=== PATIENT | female | born 1975 | race African-American/Black ===

== ENCOUNTER 2018-09-13 12:54 | Inpatient (IN) | payer OTHER ==
[2018-09-13 14:01] VITALS: BMI 31.8
--- NOTE | 2018-09-13 16:12 | HP ---
CIWA Score Nausea/Vomitin Muscle Tremors: 2 Anxiety: 2 Agitation: 2 Paroxysmal Sweats: 1-Minimal Palms Moist Orientation: 0-Oriented Tacttile Disturbances: 1-Very Mild Itch/Numbness Auditory Disturbances: 1-Very Mild Visual Disturbances: 0-None Headache: 2-Mild CIWA-Ar Total Score: 13 - Admission Criteria OASAS Guidelines: Admission for Medically Managed Detox: Requires at least one of the followin. CIWA greater than 12 2. Seizures within the past 24 hours 3. Delirium tremens within the past 24 hours 4. Hallucinations within the past 24 hours 5. Acute intervention needed for co occurring medical disorder 6. Acute intervention needed for co occurring psychiatric disorder 7. Severe withdrawal that cannot be handled at a lower level of care (continued vomiting, continued diarrhea, abnormal vital signs) requiring intravenous medication and/or fluids 8. Admission ROS [facility]HS - HPI Chief Complaint: i need hel to stop drinking alcohol and cocaine dependence Allergies/Adverse Reactions: Allergies Allergy/AdvReac Type Severity Reaction Status Date / Time No Known Allergies Allergy Verified 09/13/18 13:53 History of Present Illness: this 42 years old female with alcohol and cocaine dependence,seeking detox, withdrawal symptom, mmtp 170 mgs/day,last medicated today syncope history of endocarditis hepatitis c no treatment nicotine dependence 1 pack,would like to have nicotine patch multiple admissions in detox,last 2016 unknown facility longest period of sobriety 1 year plan for rehab after detox Exam Limitations: No Limitations - Ebola screening Have you traveled outside of the country in the last 21 days: No ([place]) Have you had contact with anyone from an Ebola affected area: No Do you have a fever: No - Review of Systems Constitutional: Loss of Appetite, Malaise, Night Sweats, Changes in sleep, Weakness EENT: reports: Nose Congestion Respiratory: reports: No Symptoms reported Cardiac: reports: No Symptoms Reported GI: reports: Nausea, Poor Appetite, Abdominal cramping : reports: No Symptoms Reported Musculoskeletal: reports: Back Pain, Muscle Pain Integumentary: reports: Dryness Neuro: reports: Headache, Tremors Endocrine: reports: No Symptoms Reported Hematology: reports: No Symptoms Reported Psychiatric: reports: No Sypmtoms Reported, Judgement Intact, Mood/Affect Appropiate, Orientated x3 Other Systems: Reviewed and Negative Patient History - Patient Medical History Hx Anemia: No Hx Asthma: No Hx Chronic Obstructive Pulmonary Disease (COPD): No Hx Cancer: No Hx Cardiac Disorders: No Hx Congestive Heart Failure: No Hx Hypertension: No Hx Hypercholesterolemia: No Hx Pacemaker: No HX Cerebrovascular Accident: No Hx Seizures: No Hx Dementia: No Hx Diabetes: No Hx Gastrointestinal Disorders: No Hx Liver Disease: No Hx Genitourinary Disorders: No Hx Sexually Transmitted Disorders: No Hx Renal Disease (ESRD): No Hx Thyroid Disease: No Hx Human Immunodeficiency Virus (HIV): No (last 06/26 negative) Hx Hepatitis C: Yes (not treatment) Hx Depression: Yes Hx Suicide Attempt: No Hx Bipolar Disorder: No Hx Schizophrenia: No Other Medical History: no suicidal,no homicidal - Patient Surgical History Past Surgical History: No - PPD History Previous Implant?: Yes Documented Results: Negative w/o proof Implanted On Prior [facility] Admission?: No PPD to be Administered?: No - Reproductive History Patient is a Female of Child Bearing Age (11 -55 yrs old): Yes Last Menstrual Period: 08/27/18 Patient : No - Smoking Cessation Smoking history: Current every day smoker Have you smoked in the past 12 months: Yes Aproximately how many cigarettes per day: 20 Cigars Per Day: 0 Hx Chewing Tobacco Use: No Initiated information on smoking cessation: Yes 'Breaking Loose' booklet given: 09/13/18 - Substance & Tx. History Hx Alcohol Use: Yes Hx Substance Use: Yes Substance Use Type: Alcohol, Cocaine Hx Substance Use Treatment: Yes (2017 unknown facility) - Substances abused Alcohol Substance route: Oral Frequency: Daily Amount used: 1 PINT OF VODKA Age of first use: 14 Date of last use: 09/13/18 Cocaine Substance route: Smoking Frequency: Daily Amount used: $20-$30 Age of first use: 27 Date of last use: 09/11/18 Family Disease History - Family Disease History Family Disease History: Other: Father (alcohol,), Mother () Admission Physical Exam BHS - Vital Signs Vital Signs: Vital Signs - 24 hr 09/13/18 09/13/18 13:54 15:30 Temperature 97.8 F 97.8 F Pulse Rate 78 78 Respiratory 20 20 Rate Blood Pressure 112/66 112/66 - Physical General Appearance: Yes: Moderate Distress, Tremorous, Irritable, Anxious HEENTM: Yes: Normal ENT Inspection, MARIA L, Pharynx Normal Respiratory: Yes: Within Normal Limits, Lungs Clear, Normal Breath Sounds Neck: Yes: Within Normal Limits, Supple, Trachea in good position Breast: Yes: Breast Exam Deferred Cardiology: Yes: Within Normal Limits, Regular Rhythm, Regular Rate, S1, S2 Abdominal: Yes: Within Normal Limits, Normal Bowel Sounds, Non Tender, Flat, Soft Genitourinary: Yes: Within Normal Limits Back: Yes: Muscle Spasm Musculoskeletal: Yes: full range of Motion, Back pain, Muscle Pain Extremities: Yes: Tremors Neurological: Yes: cigar packer and sorter II-XII NML intact, Alert, Motor Strength 5/5 Integumentary: Yes: Dry Lymphatic: Yes: Within Normal Limits - Diagnostic (1) Alcohol dependence with uncomplicated withdrawal Current Visit: Yes Status: Acute (2) Cocaine dependence Current Visit: Yes Status: Acute (3) Methadone maintenance therapy patient Current Visit: Yes Status: Acute (4) Nicotine dependence Current Visit: Yes Status: Acute (5) Hepatitis C Current Visit: Yes Status: Acute (6) Depression Current Visit: Yes Status: Acute (7) History of endocarditis Current Visit: Yes Status: Acute Cleared for Admission [facility] - Detox or Rehab [facility] Level of Care: Medically Managed Detox Regimen/Protocol: Librium Breathalyzer - Breathalyzer Breathalyzer: 0 Urine Drug Screen - Test Device Lot number: [id number] Expiration date: 07/07/20 - Control Is test valid?: Yes - Results Drug screen NEGATIVE: No Urine drug screen results: THC-Marijuana, [place]-Cocaine, MTD-Methadone Inpatient Rehab Admission - Rehab Decision to Admit Inpatient rehab admission?: No
[2018-09-13] MEDS ORDERED: BISMUTH SUBSALICYLATE 524 MG/30 ML UD PO PRN (16:22)
[2018-09-13] MEDS ORDERED: MAG HYDROX/AL HYDROX/SIMETH 30 ML UNIT-DOSE CUP PO PRN (16:22)
[2018-09-13] MEDS ORDERED: MAGNESIUM CITRATE 300 ML BOTTLE PO PRN (16:22)
[2018-09-13] MEDS ORDERED: chlordiazePOXIDE HCL 25 MG CAPSULE PO PRN (16:22)
[2018-09-13] MEDS ORDERED: MAGNESIUM HYDROX 2400MG/30ML ORAL SUSPENSION 30 ML CUP PO PRN (16:22)
[2018-09-13] MEDS ORDERED: MELATONIN 5 MG TABLETS PO PRN (16:22)
[2018-09-13] MEDS ORDERED: METHOCARBAMOL 500 MG TABLET PO PRN (16:22)
[2018-09-13] MEDS ORDERED: hydrOXYzine PAMOATE 25 MG CAPSULE (FP) PO PRN (16:22)
[2018-09-13] MEDS ORDERED: MENTHOL/PHENOL 1 EACH UD MM PRN (16:22)
[2018-09-13] MEDS ORDERED: ACETAMINOPHEN 325 MG TABLET (FP) PO PRN ×2 (16:22)
[2018-09-13] MEDS: IBUPROFEN 400 MG TABLET (FP) PO PRN (18:21)
[2018-09-13] MEDS: NICOTINE 21 MG/24 HOURS TOPICAL PATCH TD SCH (18:21)
[2018-09-13] MEDS: THIAMINE HCL 100 MG TABLET (FP) PO SCH (23:15)
[2018-09-13] MEDS: chlordiazePOXIDE HCL 25 MG CAPSULE PO SCH (23:15)
[2018-09-14] MEDS: chlordiazePOXIDE HCL 25 MG CAPSULE PO SCH ×4 (06:37→22:18)
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
[2018-09-14] MEDS ORDERED: METHADONE HCL 10 MG TABLET PO ONE (08:35)
[2018-09-14] MEDS ORDERED: METHADONE HCL 10 MG TABLET ONE (09:20)
[2018-09-14] MEDS ORDERED: METHADONE HCL 40 MG DISPERSABLE TABLET ONE (09:21)
[2018-09-14] MEDS: PRENATAL VITAMINS W/ FOLIC ACID TABLET (FP) PO SCH (09:22)
[2018-09-14] MEDS: NICOTINE 21 MG/24 HOURS TOPICAL PATCH TD SCH (09:22)
[2018-09-14] MEDS ORDERED: METHADONE 160 MG, METHADONE 10 MG PO ONE (09:30)
[2018-09-14 09:54] LABS: ALBUMIN 2.8 g/dl (3.4-5.0); BILIRUBIN,TOTAL 0.2 mg/dL (0.2-1); BLOOD UREA NITROGEN 15.1 mg/dL (7-18); CALCIUM 8.4 mg/dL (8.5-10.1); CREATININE 0.8 mg/dL (0.55-1.3); TOT PROT 6.4 g/dl (6.4-8.2)
[2018-09-14 10:09] LABS: HEMATOCRIT 35.2 % (32.4-45.2); HEMOGLOBIN 11.5 GM/dL (10.7-15.3); MCH 27.2 pg (25.7-33.7); MCHC 32.5 g/dl (32.0-36.0); MEAN CELL VOLUME 83.7 fl (80-96); MEAN PLT VOLUME 10.7 fl (7.5-11.1); PLATELET COUNT 178 K/MM3 (134-434); RBC 4.21 M/mm3 (3.60-5.2); RDW 15.5 % (11.6-15.6); WHITE BLOOD COUNT 5.7 K/mm3 (4.0-10.0)
--- NOTE | 2018-09-14 11:46 | EKG ---
Test Reason : Blood Pressure : / mmHG Vent. Rate : 070 BPM Atrial Rate : 070 BPM P-R Int : 144 ms QRS Dur : 086 ms QT Int : 460 ms P-R-T Axes : 048 059 050 degrees QTc Int : 496 ms NORMAL SINUS RHYTHM PROLONGED QT ABNORMAL ECG NO PREVIOUS ECGS AVAILABLE Confirmed by CORY REED MD ([id number]) on 09/14/2018 11:45:52 AM Referred By: SUSAN LEDESMA Confirmed By:CORY REED MD
--- NOTE | 2018-09-14 12:08 | PN ---
[facility] CIWA - CIWA Score Nausea/Vomitin-No Nausea/No Vomiting Muscle Tremors: 3 Anxiety: 3 Agitation: 3 Paroxysmal Sweats: 3 Orientation: 0-Oriented Tacttile Disturbances: 0-None Auditory Disturbances: 0-None Visual Disturbances: 0-None Headache: 0-None Present CIWA-Ar Total Score: 12 S Progress Note (SOAP) Subjective: constipation sweats shakes interrupted sleep Objective: 09/14/18 12:07 Vital Signs Temperature 98.1 F 09/14/18 09:33 Pulse Rate 73 09/14/18 09:33 Respiratory Rate 18 09/14/18 09:33 Blood Pressure 126/89 09/14/18 09:33 O2 Sat by Pulse Oximetry (%) Laboratory Tests 09/14/18 09/14/18 09/14/18 08:00 08:00 08:00 WBC 5.7 RBC 4.21 Hgb 11.5 Hct 35.2 MCV 83.7 MCH 27.2 MCHC 32.5 RDW 15.5 Plt Count 178 MPV 10.7 Sodium 142 Potassium 4.0 Chloride 106 Carbon Dioxide 29 Anion Gap 6 L BUN 15.1 Creatinine 0.8 Est GFR (CKD-EPI)AfAm 106.88 Est GFR (CKD-EPI)NonAf 92.22 Random Glucose 112 H Calcium 8.4 L Total Bilirubin 0.2 AST 9 L ALT 17 Alkaline Phosphatase 73 Total Protein 6.4 Albumin 2.8 L RPR Titer Nonreactive HIV 1&2 Antibody Screen HIV P24 Antigen 09/14/18 08:00 WBC RBC Hgb Hct MCV MCH MCHC RDW Plt Count MPV Sodium Potassium Chloride Carbon Dioxide Anion Gap BUN Creatinine Est GFR (CKD-EPI)AfAm Est GFR (CKD-EPI)NonAf Random Glucose Calcium Total Bilirubin AST ALT Alkaline Phosphatase Total Protein Albumin RPR Titer HIV 1&2 Antibody Screen Negative HIV P24 Antigen Negative aaox3 ambulating no acute distress Assessment: 09/14/18 12:07 withdrawal sx Plan: continue detox increase fluids mom/mylanta prn prune juice with meals
[2018-09-14 12:34] LABS: URINE APPEARANCE CLOUDY; URINE BILIRUBIN NEGATIVE (NEGATIVE); URINE COLOR YELLOW; URINE GLUCOSE (UA) NEGATIVE (NEGATIVE); URINE KETONE NEGATIVE (NEGATIVE); URINE LEUK ESTERASE NEGATIVE (NEGATIVE); URINE NITRITE NEGATIVE (NEGATIVE); URINE PROTEIN NEGATIVE (NEGATIVE); URINE UROBILINOGEN 0.2 mg/dL (0.2-1.0)
[2018-09-14] MEDS ORDERED: hydrOXYzine HCL 25 MG TABLET (FP) PO PRN (17:00)
[2018-09-14] MEDS: THIAMINE HCL 100 MG TABLET (FP) PO SCH (22:18)
[2018-09-15] MEDS ORDERED: METHADONE HCL 10 MG TABLET ONE (05:30)
[2018-09-15] MEDS ORDERED: METHADONE HCL 40 MG DISPERSABLE TABLET ONE (05:31)
[2018-09-15] MEDS ORDERED: METHADONE HCL 40 MG DISPERSABLE TABLET PO SCH (06:00)
[2018-09-15] MEDS: chlordiazePOXIDE HCL 25 MG CAPSULE PO SCH ×4 (06:02→22:15)
[2018-09-15] MEDS: METHADONE 160 MG, METHADONE 10 MG PO SCH (06:02)
[2018-09-15] MEDS: NICOTINE 21 MG/24 HOURS TOPICAL PATCH TD SCH (10:05)
[2018-09-15] MEDS: PRENATAL VITAMINS W/ FOLIC ACID TABLET (FP) PO SCH (10:05)
--- NOTE | 2018-09-15 10:54 | PN ---
[facility] CIWA - CIWA Score Nausea/Vomitin-No Nausea/No Vomiting Muscle Tremors: 3 Anxiety: 2 Agitation: 2 Paroxysmal Sweats: 2 Orientation: 0-Oriented Tacttile Disturbances: 0-None Auditory Disturbances: 0-None Visual Disturbances: 0-None Headache: 0-None Present CIWA-Ar Total Score: 9 S Progress Note (SOAP) Subjective: sweats shakes interrupted sleep tired Objective: 09/15/18 10:54 Vital Signs Temperature 98.1 F 09/15/18 09:42 Pulse Rate 74 09/15/18 09:42 Respiratory Rate 18 09/15/18 09:42 Blood Pressure 136/70 09/15/18 09:42 O2 Sat by Pulse Oximetry (%) Laboratory Tests 09/13/18 09/14/18 09/14/18 15:30 08:00 08:00 WBC 5.7 RBC 4.21 Hgb 11.5 Hct 35.2 MCV 83.7 MCH 27.2 MCHC 32.5 RDW 15.5 Plt Count 178 MPV 10.7 Sodium 142 Potassium 4.0 Chloride 106 Carbon Dioxide 29 Anion Gap 6 L BUN 15.1 Creatinine 0.8 Est GFR (CKD-EPI)AfAm 106.88 Est GFR (CKD-EPI)NonAf 92.22 Random Glucose 112 H Calcium 8.4 L Total Bilirubin 0.2 AST 9 L ALT 17 Alkaline Phosphatase 73 Total Protein 6.4 Albumin 2.8 L Urine Color Urine Appearance Urine pH Ur Specific [place] Urine Protein Urine Glucose (UA) Urine Ketones Urine Blood Urine Nitrite Urine Bilirubin Urine Urobilinogen Ur Leukocyte Esterase POC Urine HCG, Qual Negative RPR Titer HIV 1&2 Antibody Screen HIV P24 Antigen 09/14/18 09/14/18 09/14/18 08:00 08:00 09:40 WBC RBC Hgb Hct MCV MCH MCHC RDW Plt Count MPV Sodium Potassium Chloride Carbon Dioxide Anion Gap BUN Creatinine Est GFR (CKD-EPI)AfAm Est GFR (CKD-EPI)NonAf Random Glucose Calcium Total Bilirubin AST ALT Alkaline Phosphatase Total Protein Albumin Urine Color Yellow Urine Appearance Cloudy Urine pH 5.0 Ur Specific [place] 1.016 Urine Protein Negative Urine Glucose (UA) Negative Urine Ketones Negative Urine Blood Negative Urine Nitrite Negative Urine Bilirubin Negative Urine Urobilinogen 0.2 Ur Leukocyte Esterase Negative POC Urine HCG, Qual RPR Titer Nonreactive HIV 1&2 Antibody Screen Negative HIV P24 Antigen Negative aaox3 ambulating no acute distress Assessment: 09/15/18 10:55 withdrawal sx Plan: continue detox increase fluids
[2018-09-15] MEDS ORDERED: HYDROCORTISONE 1% TOPICAL CREAM 30 GM TUBE TP PRN (11:04)
[2018-09-15] MEDS: TOLNAFTATE 1% CREAM 15 GM TUBE TP SCH ×2 (11:34→23:45)
[2018-09-15] MEDS: THIAMINE HCL 100 MG TABLET (FP) PO SCH (22:15)
[2018-09-15] MEDS: MELATONIN 5 MG TABLETS PO PRN (22:18)
[2018-09-16] MEDS ORDERED: chlordiazePOXIDE HCL 10 MG CAPSULE PO PRN
[2018-09-16] MEDS ORDERED: METHADONE HCL 10 MG TABLET ONE (04:28)
[2018-09-16] MEDS ORDERED: METHADONE HCL 40 MG DISPERSABLE TABLET ONE (04:29)
[2018-09-16] MEDS: METHADONE 160 MG, METHADONE 10 MG PO SCH (05:38)
[2018-09-16] MEDS: chlordiazePOXIDE HCL 10 MG CAPSULE PO SCH ×4 (05:39→22:27)
[2018-09-16] MEDS: TOLNAFTATE 1% CREAM 15 GM TUBE TP SCH ×2 (10:00→23:39)
[2018-09-16] MEDS: NICOTINE 21 MG/24 HOURS TOPICAL PATCH TD SCH (10:04)
[2018-09-16] MEDS: PRENATAL VITAMINS W/ FOLIC ACID TABLET (FP) PO SCH (10:05)
--- NOTE | 2018-09-16 13:21 | PN ---
S CIWA - CIWA Score Nausea/Vomitin-No Nausea/No Vomiting Muscle Tremors: 3 Anxiety: 2 Agitation: 2 Paroxysmal Sweats: No Perspiration Orientation: 0-Oriented Tacttile Disturbances: 0-None Auditory Disturbances: 0-None Visual Disturbances: 0-None Headache: 0-None Present CIWA-Ar Total Score: 7 BHS Progress Note (SOAP) Subjective: feeling better little sweats Objective: 09/16/18 13:21 Vital Signs Temperature 98.2 F 09/16/18 09:37 Pulse Rate 72 09/16/18 09:37 Respiratory Rate 18 09/16/18 09:37 Blood Pressure 130/81 09/16/18 09:37 O2 Sat by Pulse Oximetry (%) aaox3 ambulating no acute distress Assessment: 09/16/18 13:21 mild withdrawal sx Plan: continue detox increase fluids
[2018-09-16] MEDS: THIAMINE HCL 100 MG TABLET (FP) PO SCH (22:27)
[2018-09-16] MEDS: MELATONIN 5 MG TABLETS PO PRN (22:28)
[2018-09-16] MEDS: IBUPROFEN 400 MG TABLET (FP) PO PRN (22:28)
[2018-09-17] MEDS ORDERED: METHADONE HCL 10 MG TABLET ONE (04:20)
[2018-09-17] MEDS ORDERED: METHADONE HCL 40 MG DISPERSABLE TABLET ONE (04:21)
[2018-09-17] MEDS: METHADONE 160 MG, METHADONE 10 MG PO SCH (05:32)
[2018-09-17] MEDS: chlordiazePOXIDE HCL 10 MG CAPSULE PO SCH ×2 (05:32→17:42)
[2018-09-17] MEDS: PRENATAL VITAMINS W/ FOLIC ACID TABLET (FP) PO SCH (10:25)
[2018-09-17] MEDS: NICOTINE 21 MG/24 HOURS TOPICAL PATCH TD SCH (10:26)
[2018-09-17] MEDS: TOLNAFTATE 1% CREAM 15 GM TUBE TP SCH ×2 (10:26→23:54)
[2018-09-17] MEDS: IBUPROFEN 400 MG TABLET (FP) PO PRN (10:28)
--- NOTE | 2018-09-17 12:44 | PN ---
S CIWA - CIWA Score Nausea/Vomitin-No Nausea/No Vomiting Muscle Tremors: None Anxiety: 1-Mildly Anxious Agitation: 0-Normal Activity Paroxysmal Sweats: 1-Minimal Palms Moist Orientation: 0-Oriented Tacttile Disturbances: 0-None Auditory Disturbances: 0-None Visual Disturbances: 0-None Headache: 0-None Present CIWA-Ar Total Score: 2 BHS Progress Note (SOAP) Subjective: little anxiety Objective: 09/17/18 12:43 Vital Signs Temperature 97.1 F L 09/17/18 09:51 Pulse Rate 67 09/17/18 09:51 Respiratory Rate 16 09/17/18 09:51 Blood Pressure 128/82 09/17/18 09:51 O2 Sat by Pulse Oximetry (%) aaox3 ambulating no acute distress Assessment: 09/17/18 12:43 mild withdrawal sx Plan: continue detox increase fluids d/c in am
[2018-09-17] MEDS: THIAMINE HCL 100 MG TABLET (FP) PO SCH (22:17)
[2018-09-17] MEDS: MELATONIN 5 MG TABLETS PO PRN (22:17)
[2018-09-18] MEDS ORDERED: METHADONE HCL 10 MG TABLET ONE (04:22)
[2018-09-18] MEDS ORDERED: METHADONE HCL 40 MG DISPERSABLE TABLET ONE (04:22)
[2018-09-18] MEDS ORDERED: chlordiazePOXIDE HCL 10 MG CAPSULE PO ONE (05:00)
[2018-09-18] MEDS: METHADONE 160 MG, METHADONE 10 MG PO SCH (06:11)
[2018-09-18 09:58] VITALS: BP 138/82; PULSE 75; TEMP 96.3
--- NOTE | 2018-09-18 10:11 | DS ---
[facility] Detox Discharge Summary Admission Date: 09/13/18 Discharge Date: 09/18/18 - History Present History: Alcohol Dependence, Cocaine Dependence, MMTP - Physical Exam Results Vital Signs: Vital Signs Temperature 96.3 F L 09/18/18 09:57 Pulse Rate 75 09/18/18 09:57 Respiratory Rate 18 09/18/18 09:57 Blood Pressure 138/82 09/18/18 09:57 O2 Sat by Pulse Oximetry (%) Pertinent Admission Physical Exam Findings: pt arrived in withdrawal sx Laboratory Tests 09/13/18 09/14/18 09/14/18 15:30 08:00 08:00 WBC 5.7 RBC 4.21 Hgb 11.5 Hct 35.2 MCV 83.7 MCH 27.2 MCHC 32.5 RDW 15.5 Plt Count 178 MPV 10.7 Sodium 142 Potassium 4.0 Chloride 106 Carbon Dioxide 29 Anion Gap 6 L BUN 15.1 Creatinine 0.8 Est GFR (CKD-EPI)AfAm 106.88 Est GFR (CKD-EPI)NonAf 92.22 Random Glucose 112 H Calcium 8.4 L Total Bilirubin 0.2 AST 9 L ALT 17 Alkaline Phosphatase 73 Total Protein 6.4 Albumin 2.8 L Urine Color Urine Appearance Urine pH Ur Specific [place] Urine Protein Urine Glucose (UA) Urine Ketones Urine Blood Urine Nitrite Urine Bilirubin Urine Urobilinogen Ur Leukocyte Esterase POC Urine HCG, Qual Negative RPR Titer HIV 1&2 Antibody Screen HIV P24 Antigen 09/14/18 09/14/18 09/14/18 08:00 08:00 09:40 WBC RBC Hgb Hct MCV MCH MCHC RDW Plt Count MPV Sodium Potassium Chloride Carbon Dioxide Anion Gap BUN Creatinine Est GFR (CKD-EPI)AfAm Est GFR (CKD-EPI)NonAf Random Glucose Calcium Total Bilirubin AST ALT Alkaline Phosphatase Total Protein Albumin Urine Color Yellow Urine Appearance Cloudy Urine pH 5.0 Ur Specific [place] 1.016 Urine Protein Negative Urine Glucose (UA) Negative Urine Ketones Negative Urine Blood Negative Urine Nitrite Negative Urine Bilirubin Negative Urine Urobilinogen 0.2 Ur Leukocyte Esterase Negative POC Urine HCG, Qual RPR Titer Nonreactive HIV 1&2 Antibody Screen Negative HIV P24 Antigen Negative today she shows no s/s of withdrawal sx - Treatment Hospital Course: Detox Protocol Followed, Detoxed Safely, Responded well, Discharged Condition Good, Rehab Referral Accepted - Medication Discharge Medications: Ambulatory Orders Methadone [Dolophine -] 170 mg PO DAILY 09/13/18 - Diagnosis (1) Alcohol dependence with uncomplicated withdrawal Current Visit: Yes Status: Chronic (2) Alcohol-induced sleep disorder Current Visit: Yes Status: Acute (3) Cocaine dependence Current Visit: Yes Status: Chronic Qualifiers: Substance use status: uncomplicated Qualified Code(s): F14.20 - Cocaine dependence, uncomplicated (4) Depression Current Visit: Yes Status: Acute (5) Methadone maintenance therapy patient Current Visit: Yes Status: Chronic (6) Substance induced mood disorder Current Visit: Yes Status: Acute (7) Hepatitis C Current Visit: Yes Status: Chronic Qualifiers: Viral hepatitis chronicity: chronic Hepatic coma status: without hepatic coma Qualified Code(s): B18.2 - Chronic viral hepatitis C (8) Nicotine dependence Current Visit: Yes Status: Chronic Qualifiers: Nicotine product type: cigarettes Substance use status: uncomplicated Qualified Code(s): F17.210 - Nicotine dependence, cigarettes, uncomplicated (9) History of endocarditis Current Visit: Yes Status: Resolved - AMA Did Patient Leave Against Medical Advice: No (pt referred to [facility])
== END 2018-09-18 10:27 | disposition home or self-care (01) | DRG 773 ==
LOC: YASAS 12:54 → Y6N 16:49
PROVIDERS: ADMIT Surgery; ATTEND Surgery
PROC: HZ2ZZZZ Detoxification Services for Substance Abuse Treatment (ICD-10-PCS; principal; 2018-09-13)
DX: F10.230 Alcohol dependence with withdrawal, uncomplicated (principal); F14.20 Cocaine dependence, uncomplicated; F11.20 Opioid dependence, uncomplicated; F17.210 Nicotine dependence, cigarettes, uncomplicated; F10.282 Alcohol dependence with alcohol-induced sleep disorder; F19.24 Other psychoactive substance dependence with psychoactive substance-induced mood disorder; F32.9 Major depressive disorder, single episode, unspecified; B18.2 Chronic viral hepatitis C; Z86.79 Personal history of other diseases of the circulatory system; Z59.0 Homelessness
CPT/HCPCS: 36415; 80053; 81003; 81025; 85027; 86480; 86593; 87389; 93005; 93010